=== PATIENT | male | born 1985 | race Caucasian/White ===

== ENCOUNTER 2024-07-29 11:59 | Outpatient (REF) | payer MEDICAID, SELFPAY ==
[2024-07-29 14:15] LABS: Alanine Aminotransferase 27 U/L (0-40); Albumin Level 4.3 g/dL (3.5-5.0); Alkaline Phosphatase 92 U/L (39-117); Aspartate Amino Transferase 15 U/L (5-37); Bilirubin Direct 0.1 mg/dL (0.0-0.5); Bilirubin Total 0.6 mg/dL (0.0-1.0); Total Protein 7.6 g/dL (6.5-8.0)
[2024-07-30 08:30] LABS: HBS Num1 3.97 mIU/mL (0-7.99); HBc Num1 0.09 S/CO (0.00-0.79); HBsAGNum1 0.38 S/CO (0.00-0.99); HIV AB/AG Nonreactive (Nonreactive); HIV Num 1 0.05 S/CO (0.00-0.99); Hepatitis B Core Antibody Nonreactive (Nonreactive); Hepatitis B Surface Antigen Negative (Negative); ~HepC Num1 0.08 S/CO (0.00-0.79); ~Hepatitis B Surface Antibody NONREACTIVE (Nonreactive); ~Hepatitis C Antibody Nonreactive (Nonreactive)
[2024-07-30 08:35] LABS: Hepatitis A Antibody IgG Nonreactive (Nonreactive); ~Hepatitis A Antibody IgG 0.26 S/CO (0.00-0.99)
[2024-07-30 08:36] LABS: Syphilis Screen Nonreactive (Nonreactive)
[2024-08-01 05:48] LABS: TS Negative Control Passed; TS Panel A 0; TS Panel B 2; TS Positive Control Passed; TSpotTB Negative (Negative)
== END 2024-07-29 12:00 | disposition home or self-care (01) ==
LOC: HO.HHCL 11:59
PROVIDERS: Visit Provider Family Medicine
DX: F10.20 Alcohol dependence, uncomplicated (principal)
CPT/HCPCS: 36415; 80076; 86481; 86704; 86706; 86708; 86780; 86803; 87340; 87389

== ENCOUNTER 2025-05-25 20:27 | Emergency (ER) | payer MEDICAID, SELFPAY ==
--- NOTE | ~2025-05-25 | XR_ITS ---
CLINICAL HISTORY: injury, pain 4 view left knee Comparison: CR - XR TIBIA FIBULA LT 2V - 05/25/25 21:07 EDT Findings: Lipohemarthrosis indicative of intra-articular fracture. Fracture of the lateral tibial spine concerning for ligamentous injury. Abnormal contour of the lateral tibial plateau concerning for fracture. No significant arthritic change or erosions. No radiopaque foreign body. IMPRESSION: 1. Lipohemarthrosis indicative of intra-articular fracture. 2. Fracture of the lateral tibial spine concerning for ligamentous injury. 3. Abnormal contour of the lateral tibial plateau concerning for fracture. This document has been electronically signed by: Charbel Herrera DO on 05/25/2025 21:44:02
--- NOTE | ~2025-05-25 | XR_ITS ---
CLINICAL HISTORY: injury, pain 2 view left tibia-fibula Comparison: CR - XR KNEE LT 4V - 05/25/25 21:08 EDT Findings Fracture of the medial tibial spine concerning for ligamentous injury. Age-indeterminate fracture of the inferior tip of the medial malleolus. Possible fracture of the lateral tibial plateau. No joint effusion. No significant arthritic change. No radiopaque foreign body. IMPRESSION: 1. Fracture of the medial tibial spine concerning for ligamentous injury. 2. Age-indeterminate fracture of the inferior tip of the medial malleolus. 3. Possible fracture of the lateral tibial plateau. This document has been electronically signed by: Charbel Herrera DO on 05/25/2025 21:44:22
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
[2025-05-25 20:36] VITALS: BP 139/81; PULSE 96; RESP 20; TEMP 36.8; O2SAT 97; BMI 28.5
[2025-05-25 20:46] VITALS: BP 129/59; PULSE 92; RESP 19; TEMP 36.6; O2SAT 98
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
[2025-05-25 22:29] VITALS: BP 153/86; PULSE 91; RESP 16; TEMP 36.6; O2SAT 97
[2025-05-25 22:37] VITALS: RESP 18
[2025-05-26 00:26] VITALS: BP 121/72; PULSE 84; RESP 19; TEMP 36.7; O2SAT 98
[2025-05-26] MEDS: oxyCODONE HCl Immed Release 5 MG TABLET 10 MG PO (00:27)
[2025-05-26 00:58] VITALS: BP 121/72; PULSE 84; RESP 19; TEMP 36.7; O2SAT 98
== END 2025-05-26 01:05 | disposition home or self-care (01) ==
PROVIDERS: Emergency Provider Emergency Medicine
DX: S82.202A Unspecified fracture of shaft of left tibia, initial encounter for closed fracture (principal); M79.605 Pain in left leg; V19.9XXA Pedal cyclist (driver) (passenger) injured in unspecified traffic accident, initial encounter; Y93.89 Activity, other specified; Y92.89 Other specified places as the place of occurrence of the external cause; Y99.8 Other external cause status
CPT/HCPCS: 73564; 73590; 73700; 96374; 96375; 96376; 99284; J1885; J2270

== ENCOUNTER → 2025-05-25 20:35 | Outpatient (BNV) | payer MEDICAID, SELFPAY | PROVIDERS: Visit Provider Family Medicine | DX: S82.112A Displaced fracture of left tibial spine, initial encounter for closed fracture (principal) | CPT/HCPCS: 73564; 73590 ==

== ENCOUNTER 2025-05-26 09:59 | Outpatient (AMB) | payer MEDICAID, SELFPAY ==
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
[2025-05-26 10:09] VITALS: BMI 28.5
--- OUTSIDE RECORDS SUMMARY | 2025-05-26 10:45 | XMS_ITS | Clinical Summary ---
Author Organization [employer] Address [address] [place] [address] [address] [place] [address] Care Team Providers Care Pattern Cutter Name Role Phone Unavailable Primary Care Provider Unavailabl e Allergies No known active allergies Social History Tobacco Use Types Packs/Day Years Used Date Smoking Tobacco: Never Assessed Alcohol Answer Date Recorded How often do you have a drink containing alcohol ? 4 07/19/2024 How many drinks containing a lcohol do you have on a typical day when you are drinking? 4 07/19/2024 How often do you have six or more drinks on one occasion? 4 07/19/2024 Sex and Gender Information Value Date Recorded Sex Assigned at Male 08/26/2024 11:40 AM EDT Legal Sex Male 6:04 PM EDT Gender Identity Male 08/26/2024 11:35 AM EDT Sexual Orientation Straight 08/26/2024 11 :40 AM EDT Last Filed Vital Signs Vital Sign Reading Time Taken Comments Blood Pressure 150/83 07/19/2024 3:22 PM EDT Pulse 86 07/19/2024 3:22 PM EDT Temperature 36.6 C (97.9 F) 07/19/2024 3:22 PM EDT Respiratory Rate 20 07/19/2024 3:22 PM EDT Oxygen Saturation - - Inhaled Oxygen Concentration - - Weight 93 kg (205 lb 0.6 oz) 07/19/2024 3:22 PM EDT Height - - Body Mass Index - - Plan of Treatment Health Maintenance Due Date Last Done Comments Depression Screening 1987 Lipid Panel 1987 SDOH Screening 1987 Disability Screening 1987 Tobacco Screening 1999 Family Planning (PISQ) 2002 HPV Vaccines (1 - Male 3-dos e series) 2002 DTaP/Tdap/Td Vaccines (1 - Tdap) 2006 Hepatitis B Vaccines (1 of 3 - 19+ 3-dose series) 2006 Pneumococcal Vaccine: Pediat rics (0 to 5 Years) and At-Risk Patients (6 to 49) Years (1 of 2 - PCV) 2006 COVID-19 Vaccine ( - 2023-2 5 season) 2024 Influenza Vaccine (#1) 2025 Alcohol/Substance Use Screening 07/19/2025 Zoster Vaccines (1 of 2) 2037 RSV Patients and Pa tients Aged 60 years or older (1 - 1-dose 75+ series) 2062 HIV Screening Completed 07/29/2024 Hepatitis C Screening Completed 07/29/2024 HIB Vaccines Aged Out No longer eligi ble based on patient's age to complete this topic Hepatitis A Vaccines Aged Out No long er eligible based on patient's age to complete this topic IPV Vaccines Aged Out No longer eligi ble based on patient's age to complete this topic Meningococcal B Vaccine Aged Out No l onger eligible based on patient's age to complete this topic Meningococcal Vaccine Aged Out No jules volodymyr eligible based on patient's age to complete this topic RSV under 20 months Aged Out No longe r eligible based on patient's age to complete this topic Rotavirus Vaccines Aged Out No longer eligible based on patient's age to complete this topic Procedures Procedure Name Priority Date/Time Associated Diagnosis Comments HEPATITIS C AB W/REFL TO HCV RNA, QN, PCR Routine 07/29/2024 12:06 PM EDT Severe alcohol use disorder (CMS/HCC) HIV 1/2 ANTIGEN/ANTIBODY, FOURTH GENERATION W/RFL Routine 07/29/2024 12:06 PM EDT Severe alcohol use disorder (CMS/HCC) from Last 3 Months or Most Recently Relevant to Health Maintenance Results * Hepatitis C Antibody with Reflex to HCV, RNA, Quantitative, Real-Time PCR (07/29/2024 12:06 PM EDT) Hepatitis C Antibody Nonreactive Nonreactive [facility] Comment:Antibodies to HCV no t detected; does not exclude early acuteHCV infection. Blood Venous blood specimen / Unknown 07/29/2024 12:06 PM EDT 07/29/2024 1:21 PM EDT Mauricio Núñez MD LAB BLOOD ORDERABLES Final Resul t Performing Organization Address [facility] Co de Phone Number [facility] [address] [place] [address] [phone] * HIV-1/2 Antigen and Antibodies, Fourth Generation, with Reflexes (07/29/2024 12:06 PM EDT) [facility] HIV AB/AG Nonreactive Nonreactive [facility] Comment:HIV-1 p24 Ag and/or HIV-1/HIV-2 Ab not detected.A test result that is nonreactive does not exclude thepossibility of exposure to or infection with HIV-1 and/orHIV-2. Nonreactive results in this assay for individualswith prior exposure to HIV-1 and/or HIV-2 may be due toantigen and antibody levels that are below the limit ofdetection of this assay.The Sellf HIV Ag/Ab Combo assay result andsupplemental assay results should be interpreted inconjunction with the patient's clinical presentation,history and other laboratory results. If the results areinconsistent with clinical evidence, additional testing issuggested to confirm the result. Blood Venous blood specimen / Unknown 07/29/2024 12:06 PM EDT 07/29/2024 1:21 PM EDT Mauricio Núñez MD LAB BLOOD ORDERABLES Final Resul t Performing Organization Address City/[facility]/ZIP Co de Phone Number [facility] [address] [place] [address] [phone] from Last 3 Months or Most Recently Relevant to Health Maintenance Insurance [facility] Member Subscriber Plan / Payer (Ef fective 2024-Present) Name:Hogn Gaona Relation to Subscriber:Self Name:Hong Gaona Payer ID:Not on file Group ID:Not on file Type:Medicaid Address: [address]
--- OUTSIDE RECORDS SUMMARY | 2025-05-26 10:45 | XMS_ITS | Clinical Summary ---
Author Organization [facility] Address [address] [place] [phone] Phone Care Team Providers Care Fiscal Assistant Name Role Phone Unknown, Unknown Primary Care Provider Maia banegas Allergies No known active allergies Medications No known medications Social History Tobacco Use Types Packs/Day Years Used Date Smoking Tobacco: Never Smokeless Tobacco: Never Alcohol Use Standard Drinks/Week Comments Yes 0 (1 standard drink = 0.6 oz pur e alcohol) weekends Education Answer Date Recorded Are you interested in more education? Not on amy e 03/03/2023 Are you concerned about learning? Not on file 03/03/2023 No 03/03/2023 No 03/03/2023 Digital Access Answer Date Recorded No 04/01/2023 No 04/01/2023 No 04/01/2023 Reliable internet access at home? Not on file 04/01/2023 Device with a working camera? Not on file Sex and Gender Information Value Date Recorded Sex Assigned at Not on file Legal Sex Male 1:38 PM EST Gender Identity Not on file Sexual Orientation Not on file Last Filed Vital Signs Vital Sign Reading Time Taken Comments Blood Pressure - - Pulse - - Temperature - - Respiratory Rate - - Oxygen Saturation - - Inhaled Oxygen Concentration - - Weight 94.3 kg (208 lb) 09/21/2020 11:15 AM EST Height 182.9 cm (6') 09/21/2020 11:15 AM EST Body Mass Index 28.21 09/21/2020 11:15 AM EST Plan of Treatment Health Maintenance Due Date Last Done Comments Adult Td,Tdap Booster 1987 LIPID PANEL 1987 DEPRESSION SCREENING 1999 HEPATITIS C SCREENING 2005 HIV ONE-TIME SCREENING (18-6 5 YEARS) 2005 COVID-19 VACCINE (2023-2 5 season) 2024 SMOKING STATUS SCREENING (On ce After 26 Yrs) Completed 10/20/2020 HEPATITIS A VACCINES Aged Out No long er eligible based on patient's age to complete this topic HIB VACCINES Aged Out No longer eligi ble based on patient's age to complete this topic MENINGOCOCCAL VACCINES (ACWY) Aged Out No longer eligible based on patient's age to complete this topic MENINGOCOCCAL VACCINES (B) Aged Out N o longer eligible based on patient's age to complete this topic PNEUMOCOCCAL VACCINES (0-49 years) Aged Out No longer eligible based on patient's age to complete this topic Medical Devices Not on file [place] [address] [place] [place] [address] [employer] Care Teams Fiscal Assistant Relationship Specialty Start Date End Date Unknown, Unknown, PCP - General 09/21/20 Additional Source Comments The information contained in this document represents components of the legal health record. It is not the complete legal health record.[facility]
--- OUTSIDE RECORDS SUMMARY | 2025-05-26 10:46 | XMS_ITS | Patient Health Record ---
Author Organization [facility] Address [address] [place], [place] [id number] Care Team Providers Care Manager Aerospace Name Role Phone [facility] Primary Care Provider Un available [facility] Unavailable [phone] Reason For Referral No Information Plan Of Treatment No Information Insurance Providers Payer Name Payer Address Payer Phone Subscriber Number Group Number Insured Name Patient Relationship to Insured Coverage Start Date Coverage End Date [place] Medicaid Standard [address] [place] [address] [id number] Hong Gaona Self - patient is the insured 3
== END 2025-05-26 10:52 | disposition home or self-care (01) ==
LOC: HO.HOS 10:00
PROVIDERS: Visit Provider Physician Assistant
DX: S82.142A Displaced bicondylar fracture of left tibia, initial encounter for closed fracture (principal)
CPT/HCPCS: 99204

== ENCOUNTER → 2025-05-26 09:59 | Outpatient (BNVA) | payer MEDICAID, SELFPAY | PROVIDERS: Visit Provider Physician Assistant | DX: S82.142A Displaced bicondylar fracture of left tibia, initial encounter for closed fracture (principal) | CPT/HCPCS: 99212 ==

== ENCOUNTER 2025-06-05 16:32 | Emergency (ER) | payer MEDICAID, SELFPAY ==
--- NOTE | ~2025-06-05 | US_ITS ---
CLINICAL HISTORY: swelling, pain VENOUS DUPLEX ULTRASOUND LEFT LOWER EXTREMITY Comparison: None provided Findings: The visualized deep veins are fully compressible with normal Doppler color flow and spectral tracings. No popliteal cyst. IMPRESSION: 1. Negative for left lower extremity deep vein thrombosis. This document has been electronically signed by: Erika Barnes DO on 06/05/2025 17:56:34
--- NOTE | ~2025-06-05 | CT_ITS ---
CLINICAL HISTORY: tibfib, known tib plateua fx, --- Additional Notes or Special Instructions: new swelling deformity etc CT LEFT TIBIA AND FIBULA WITHOUT CONTRAST Comparison: CT/SR - CT KNEE LT WO IV CON - 05/25/25 22:24 EDT Findings: Mildly depressed comminuted fracture in the posterolateral tibial plateau with no significant endosteal or periosteal sclerosis. Displaced fracture in the lateral intercondylar tubercle with non sclerotic margins. Old well corticated nonunited avulsion fracture in the medial malleolus. No new fracture identified. Uhugn-el-rhfkawdr retropatellar and suprapatellar joint effusion. No erosive or resorptive bony changes to suggest acute osteomyelitis. No deep or superficial gas locule. No foreign body. No significant arthritic changes. Prominent suprapatellar spurs. Small calcaneal spurs. Impression: 1. No significant interval healing changes in the posterolateral tibial plateau fracture and lateral intercondylar tubercle fracture. Unchanged alignment. 2. No new fracture identified. 3. Wrhko-ov-syvcfatg joint effusion. 4. No evidence for osteomyelitis. This document has been electronically signed by: Erika Barnes DO on 06/05/2025 19:43:17
[2025-06-05 16:53] VITALS: BP 130/87; PULSE 94; RESP 16; TEMP 36.5; O2SAT 98
[2025-06-05 16:56] VITALS: BMI 27.8
--- NOTE | 2025-06-05 17:10 | PC.NURSE ---
Pt reports 8/10 L knee/lower leg pain not relieved with PO pain meds; pt reports tightness in the posterior calf and ecchymosis to anterior lower leg that was not present before; cap refill to both LE's brisk; pt to U/S at this time
[2025-06-05 17:57] LABS: MANUAL DIFF FLAG NO
[2025-06-05 18:06] LABS: INTERNATIONAL NORM RATIO 1.1 (0.9-1.1); Prothrombin Time 12.1 SEC (10.9-12.4)
[2025-06-05 18:14] LABS: Alanine Aminotransferase 46 U/L (0-40); Albumin Level 4.7 g/dL (3.5-5.0); Alkaline Phosphatase 96 U/L (39-117); Anion Gap 13 (12-20); Aspartate Amino Transferase 24 U/L (5-37); Blood Urea Nitrogen 13 mg/dL (9-16); Calcium 9.7 mg/dL (8.4-10.2); Carbon Dioxide 27 mmol/L (22-29); Chloride 104 mmol/L (96-108); Creatinine Clr Calc Pharmacy 113.3; Estimated Glomerular Filt Rate > 60; Potassium 4.4 mmol/L (3.3-5.1); Sodium 140 mmol/L (135-145); Total Protein 8.1 g/dL (6.5-8.0)
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
[2025-06-05 18:24] LABS: Hematocrit 40.1 % (42.0-52.0); Hemoglobin 14.7 g/dl (14.0-18.0); Imm Gran Abs Auto 0.04 X10*3/uL (0.00-0.03); Imm Gran Pct Auto 0.5 % (0.0-0.4); Lymphocytes Absolute Auto 2.0 X10*3/uL (1.2-4.9); Mean Corpuscular HGB Conc 36.7 g/dl (31.0-36.0); Mean Corpuscular Hemoglobin 32.2 pg (27.0-33.0); Mean Corpuscular Volume 87.9 fL (80.0-98.0); NRBC Abs Auto 0.000 X10*3/uL (0.0-0.012); NRBC Pct Auto 0.0 /100WBC (0.0-0.2); Platelet Count 392 X10*3/uL (160-400); Red Blood Count 4.56 X10*6/uL (4.60-5.80); White Blood Count 8.3 X10*3/uL (4.8-10.8)
[2025-06-05 18:29] VITALS: BP 134/79; PULSE 81; RESP 16; TEMP 36.4; O2SAT 98
[2025-06-05 20:00] VITALS: BP 129/81; PULSE 75; RESP 16; TEMP 36.5; O2SAT 97
[2025-06-05 20:21] VITALS: BP 129/81; PULSE 75; RESP 16; TEMP 36.5; O2SAT 97
== END 2025-06-05 20:27 | disposition home or self-care (01) ==
PROVIDERS: Physician Assistant Medical; Emergency Provider Emergency Medicine
DX: R60.0 Localized edema (principal); M79.605 Pain in left leg; Z79.899 Other long term (current) drug therapy
CPT/HCPCS: 36415; 73700; 80053; 85025; 85610; 93971; 96374; 96375; 99284; J1171; J1885; J2270

== ENCOUNTER → 2025-06-05 16:55 | Outpatient (BNV) | payer MEDICAID, SELFPAY | PROVIDERS: Visit Provider Radiology Diagnostic Radiology | DX: M25.462 Effusion, left knee (principal); M25.562 Pain in left knee | CPT/HCPCS: 73700; 93971 ==

== ENCOUNTER 2025-07-15 08:43 | Outpatient (REF) | payer MEDICAID, SELFPAY ==
--- OUTSIDE RECORDS SUMMARY | 2025-07-16 10:10 | XMS_ITS | Clinical Summary ---
Author Organization [facility] Address [address] [place] [phone] Phone Care Team Providers Care Material Damage Adjuster Name Role Phone Unknown, Unknown Primary Care [...] HIV ONE-TIME SCREENING (18-6 5 YEARS) 2005 INFLUENZA VACCINE (#1) 2025 COVID-19 VACCINE (2023-2 5 season) 2025 SMOKING STATUS SCREENING (On ce After 26 [...] topic Medical Devices Not on file Insurance [employer]3 [employer] [facility] C3 [employer] Member Subscriber Plan / Payer (Ef fective 2020-Present) Name:Hong Gaona Relation to Subscriber:Self Name:JimenezHong Payer ID:[id number] Group ID:Not on file Type:Medicaid Address: [place] [id number] [employer] [address] [place] [address] [address] [employer] Care Teams Material Damage Adjuster Relationship Specialty Start Date End Date Unknown, Unknown, PCP - General 09/21/20 Additional Source Comments The information contained in this document represents components of the legal health record. It is not the complete legal health record.[facility]
--- OUTSIDE RECORDS SUMMARY | 2025-07-16 10:10 | XMS_ITS | Encounter Summary ---
Author Organization [facility] Address [address] [place] [phone] Phone Care Team Providers Care Nutrition And Dietetics Instructor Name Role Phone Unknown, Unknown Primary Care Provider Maia banegas Encounter Details Date Type Department Care Team (Late st Contact Info) Description 09/23/2020 Ancillary Orders [facility],Outside Imaging [address] [place] [address] System, Provider Not In, [facility] [address] [address] Social History Tobacco Use Types Packs/Day Years Used Date Smoking Tobacco: Never Smokeless Tobacco: Never Alcohol Use Standard Drinks/Week Comments Yes 0 (1 standard drink = 0.6 oz pur e alcohol) weekends Sex and Gender Information Value Date Recorded Sex Assigned at Not on file Legal Sex Male 1:38 PM EST Gender Identity Not on file Sexual Orientation Not on file documented as of this encounter Plan of Treatment Not on file documented as of this encounter Results * XR Upper Extremity Outside (No Interpretation) (09/17/2020 12:00 AM EST) Narrative SYSTEMGENERATED, DOCUMENTATION - 09/23/2020 12:38 PM EST This study is for PACS storage only and not for interpretation. us Provider Not In System PhD [facility] OUTSIDE IMAGING W /OUT INTERPRETATION Final Result documented in this encounter Visit Diagnoses Not on filedocumented in this encounter Care Teams Nutrition And Dietetics Instructor Relationship Specialty Start Date End Date Unknown, Unknown, PCP - General 09/21/20 documented as of this encounter Additional Source Comments The information contained in this document represents components of the legal health record. It is not the complete legal health record.[facility]
--- OUTSIDE RECORDS SUMMARY | 2025-07-16 10:10 | XMS_ITS | Clinical Summary ---
Author Organization [employer] Address [address] [place] [address] 7[address] [place] [address] Care Team Providers Care It Compliance Analyst Name Role Phone Unavailable Primary Care Provider Unavailabl e Allergies No known active allergies Encounters Date Type Department Care Team Description 06/24/2025 Telephone [facility] [address] [place] [address] Derek Bailey MD 06/05/2025 Orders Only [facility] External Provider, [facility] from Last 3 Months Social History Tobacco Use Types Packs/Day Years [...] of 2 - PCV) 2006 COVID-19 Vaccine (1 - 2023-2 5 season) 2025 Influenza Vaccine (#1) 2025 Alcohol/Substance Use Screening 07/19/2025 4 Zoster Vaccines (1 of 2) 2037 RSV [...] Procedure Name Priority Date/Time Associated Diagnosis Comments CT LOWER EXTREMITY WO CONTRAST LEFT Routine 06/05/2025 7:43 PM EDT LOWER EXTREMITY VENOUS DUPLEX LEFT Routine 06/05/2025 5:56 PM EDT CBC WITH AUTO DIFFERENTIAL Routine 06/05/2025 5:54 PM EDT COMPREHENSIVE METABOLIC PANEL Routine 06/05/2025 5:54 PM EDT PROTHROMBIN TIME-INR Routine 06/05/2025 5:54 PM EDT HEPATITIS C AB W/REFL TO HCV RNA, QN, PCR Routine 07/29/2024 12:06 PM EDT Severe alcohol use disorder (CMS/HCC) HIV 1/2 ANTIGEN/ANTIBODY, FOURTH GENERATION W/RFL Routine 07/29/2024 12:06 PM EDT Severe alcohol use disorder (CMS/HCC) from Last 3 Months or Most Recently Relevant to Health Maintenance Results * CT Lower Extremity w/o Contrast Left (06/05/2025 7:43 PM EDT) Anatomical Region Laterality Modality Computed Tomogra phy 06/05/2025 7:43 PM EDT Narrative 06/05/2025 7:45 PM EDT [place] [address] CT Scan Report Signed Patient: Hong Gaona MR#: [id number] : 1985 Acct:[id number] Age/Sex: 40 / M ADM Date: 06/05/25 Loc: HO.ED Attending Dr: Ordering Physician: Miryam Moya Date of Service: 06/05/25 Procedure(s): CT lower leg LT wo IV con Accession Number(s): [id number] cc: Miryam Moya; [facility] Report Number: [id number]: Total DLP = 393.00 mGy-cm CLINICAL HISTORY: tibfib, known tib plateua fx, --- Additional Notes or Special Instructions: new swelling deformity etc CT LEFT TIBIA AND FIBULA WITHOUT CONTRAST Comparison: CT/SR - CT KNEE LT WO IV CON - 05/25/25 22:24 EDT Findings: Mildly depressed comminuted fracture in the posterolateral tibial plateau with no significant endosteal or periosteal sclerosis. Displaced fracture in the lateral intercondylar tubercle with non sclerotic margins. Old well corticated nonunited avulsion fracture in the medial malleolus. No new fracture identified. Rxmkr-xm-hfifufdf retropatellar and suprapatellar joint effusion. No erosive or resorptive bony changes to suggest acute osteomyelitis. No deep or superficial gas locule. No foreign body. No significant arthritic changes. Prominent suprapatellar spurs. Small calcaneal spurs. Impression: 1. No significant interval healing changes in the posterolateral tibial plateau fracture and lateral intercondylar tubercle fracture. Unchanged alignment. 2. No new fracture identified. 3. Xgiof-tp-dxjvvkkr joint effusion. 4. No evidence for osteomyelitis. This document has been electronically signed by: Erika Barnes DO on 06/05/2025 19:43:17 Dictated By: Erika Barnes MD Signed By: <Electronically signed by Erika Barnes MD in OV> 06/05/251943 DD/ 42 TD/TT: 06/05/251942 Lead Shop Operator: Procedure Note Donotuseinterpreter, Image - 06/05/[address] [place] [address] [address] Scan Report Signed Patient: Hong Gaona LMR#: [id number] : 1985Acct:[id number] Age/Sex: 40 / MADM Date: 06/05/25 Loc: HO.ED Attending Dr: Ordering Physician: Miryam Moya Date of Service: 06/05/25 Procedure(s): CT lower leg LT wo IV con Accession Number(s): [id number] cc: Miryam Moya; [facility] Report Number: [id number]: Total DLP = 393.00 mGy-cm CLINICAL HISTORY: tibfib, known tib plateua fx, --- Additional Notes orSpecial Instructions: new swelling deformity etc CT LEFT TIBIA AND FIBULA WITHOUT CONTRAST Comparison: CT/SR - CT KNEE LT WO IV CON - 05/25/25 22:24 EDT Findings: Mildly depressed comminuted fracture in the posterolateral tibial plateau with no significant endosteal or periosteal sclerosis. Displaced fracture in the lateral intercondylar tubercle with non sclerotic margins. Old well corticated nonunited avulsion fracture in the medial malleolus. No new fracture identified. Hbptk-ak-idrpgnep retropatellar and suprapatellar joint effusion. No erosive or resorptive bony changes to suggest acute osteomyelitis. No deep or superficial gas locule. No foreign body. No significant arthritic changes. Prominent suprapatellar spurs. Small calcaneal spurs. Impression: 1. No significant interval healing changes in the posterolateral tibial plateau fracture and lateral intercondylar tubercle fracture. Unchanged alignment. 2. No new fracture identified. 3. Redyv-ex-mnlqlruf joint effusion. 4. No evidence for osteomyelitis. This document has been electronically signed by: Erika Barnes DO on 06/05/2025 19:43:17 Dictated By: Erika Barnes MD Signed By: <Electronically signed by Erika Barnes MD in OV> 06/05/251943 DD/ 42 TD/TT: 06/05/251942 Lead Shop Operator: [facility] External Provider IMG CT PROCEDURES Final Result * Lower Extremity Venous Duplex (06/05/2025 5:56 PM EDT) 06/05/2025 5:56 PM EDT Narrative [facility] - 06/05/2025 5:58 PM EDT [address] [address] Ultrasound Report Signed Patient: Hong Gaona MR#: [id number] : 1985 Acct:[id number] Age/Sex: 40 / M ADM Date: 06/05/25 Loc: HO.ED Attending Dr: Ordering Physician: Yisel Ruiz Date of Service: 06/05/25 Procedure(s): US venous duplex LE Accession Number(s): [id number] cc: Yisel Ruiz; [facility] CLINICAL HISTORY: swelling, pain VENOUS DUPLEX ULTRASOUND LEFT LOWER EXTREMITY Comparison: None provided Findings: The visualized deep veins are fully compressible with normal Doppler color flow and spectral tracings. No popliteal cyst. IMPRESSION: 1. Negative for left lower extremity deep vein thrombosis. This document has been electronically signed by: Erika Barnes DO on 06/05/2025 17:56:34 Dictated By: Erika Barnes MD Signed By: <Electronically signed by Erika Barnes MD in OV> 06/05/251756 DD/ 55 TD/TT: 06/05/251755 Lead Shop Operator: Procedure Note Donotuseinterpreter, Image - 06/05/[address] [address] Ultrasound Report Signed Patient: Hong Gaona LMR#: [id number] : 1985Acct:[id number] Age/Sex: 40 / MADM Date: 06/05/25 Loc: .ED Attending Dr: Ordering Physician: Yisel Ruiz Date of Service: 06/05/25 Procedure(s): US venous duplex LE LT Accession Number(s): [id number] cc: Yisel Ruiz; [facility] CLINICAL HISTORY: swelling, pain VENOUS DUPLEX ULTRASOUND LEFT LOWER EXTREMITY Comparison: None provided Findings: The visualized deep veins are fully compressible with normal Doppler color flow and spectral tracings. No popliteal cyst. IMPRESSION: 1. Negative for left lower extremity deep vein thrombosis. This document has been electronically signed by: Erika Barnes DO on 06/05/2025 17:56:34 Dictated By: Erika Barnes MD Signed By: <Electronically signed by Erika Barnes MD in OV> 06/05/251756 DD/ 55 TD/TT: 06/05/251755 Lead Shop Operator: [facility] External Provider CV VASC ULAR PROCEDURES Final Result [facility] [address] [place] [address] [phone] * (ABNORMAL) CBC auto differential (06/05/2025 5:54 PM EDT) White Blood Count 8.3 4.8 - 10.8 X10*3/uL [facility] Red Blood Count 4.56(L) 4.60 - 5.80 X10*6/uL [facility] Hemoglobin 14.7 14.0 - 18.0 g/dl [facility] Hematocrit 40.1(L) 42.0 - 52.0 % [facility] Mean Corpuscular Volume 87.9 80.0 - 98.0 fL [facility] Mean Corpuscular Hemoglobin 32.2 27.0 - 33.0 pg [facility] Mean Corpuscular HGB Conc 36.7(H) 31.0 - 36.0 g/dl [facility] Red Cell Distribution Width 12.3 11.0 - 16.0 % [facility] Platelet Count 392 160 - 400 X10*3/uL [facility] Mean Platelet Volume 8.3(L) 9.4 - 12.4 fL [facility] Neutrophils Percent Auto 66.3 45 - 73 % [facility] Imm Gran Pct Auto 0.5(H) 0.0 - 0.4 % [facility] Lymphocytes Percent Auto 24.5 20 - 40 % [facility] Monocytes Percent Auto 6.9 2 - 11 % [facility] Eosinophils Percent Auto 1.2 0 - 4 % [facility] Basophils Percent Auto 0.6 0 - 2 % [facility] NRBC Pct Auto 0.0 0.0 - 0.2 /100WBC [facility] Neutrophils Absolute Auto 5.5 2.0 - 8.3 x10*3/uL [facility] Imm Gran Abs Auto 0.04(H) 0.00 - 0.03 X10*3/uL [facility] Lymphocytes Absolute Auto 2.0 1.2 - 4.9 X10*3/uL [facility] Monocytes Absolute Auto 0.6 0.1 - 1.2 X10*3/uL [facility] Eosinophils Absolute Auto 0.1 0.0 - 0.4 X10*3/uL [facility] Basophils Absolute Auto 0.1 0.0 - 0.2 X10*3/uL [facility] NRBC Abs Auto 0.000 0.0 - 0.012 X10*3/uL [facility] 06/05/2025 5:54 PM EDT 06/05/2025 5:56 PM EDT Generic External Data Provider LAB BLOOD ORDERAB LES Final Result Performing Organization Address [facility] Co de Phone Number [facility] [address] [place] [address] [phone] * Prothrombin Time-INR (06/05/2025 5:54 PM EDT) Prothrombin Time 12.1 10.9 - 12.4 SEC [facility] INTERNATIONAL NORM RATIO 1.1 0.9 - 1.1 [facility] Comment:INTERNATIONAL NORMAL IZED RATIO (INR) REFERENCE RANGES Reference RangeFor patients not on anticoagulant therapy: 0.9 - 1.1INR ranges for oral anticoagulanttherapy:For prevention and treatment of venous thrombosis and pulmonary embolism: 2.0 - 3.0For acute myocardial infarction with aspirin therapy: 2.0 - 3.0For acute myocardial infarction without aspirin therapy: 3.0 - 4.0For patients with mechanical prosthetic heart valves: 2.5 - 3.5 06/05/2025 5:54 PM EDT 06/05/2025 5:56 PM EDT Generic External Data Provider LAB BLOOD ORDERAB LES Final Result Performing Organization Address [facility] Co de Phone Number [facility] [address] [place] [address] [phone] * (ABNORMAL) Comprehensive Metabolic Panel (06/05/2025 5:54 PM EDT) Sodium 140 135 - 145 mmol/L [facility] Potassium 4.4 3.3 - 5.1 mmol/L [facility] Chloride 104 96 - 108 mmol/L [facility] Carbon Dioxide 27 22 - 29 mmol/L [facility] Anion Gap 13 12 - 20 [facility] Urea Nitrogen (BUN) 13 9 - 16 mg/dL [facility] Creatinine, Serum 0.97 0.5 - 1.4 mg/dL [facility] Creatinine Clr Calc Pharmacy 113.3 [facility] Comment:eGFR (calculated fro m the MDRD study equation) and eCrCl(calculated from the Cockcroft-Gault equation) are based ondifferent parameters and may not yield comparable results.If eCrCl result is absurd, please check patient'sheight/weight. Estimated Glomerular Filt Rate >60 [facility] Comment:Chronic Kidney Disea se: Estimated GFR < 60 mL/min/1.15j3Hbqrwh Kidney Disease: Estimated GFR < 15 mL/min/1.73m2 Glucose 112 60 - 115 mg/dL [facility] Calcium 9.7 8.4 - 10.2 mg/dL [facility] Bilirubin, Total 0.4 0.0 - 1.0 mg/dL [facility] Aspartate Amino Transferase 24 5 - 37 U/L [facility] Alanine Aminotransferase 46(H) 0 - 40 U/L [facility] Total Protein 8.1(H) 6.5 - 8.0 g/dL [facility] Albumin Level 4.7 3.5 - 5.0 g/dL [facility] Alkaline Phosphatase 96 39 - 117 U/L [facility] 06/05/2025 5:54 PM EDT 06/05/2025 5:56 PM EDT us Generic External Data Provider LAB BLOOD ORDERAB LES Final Result [facility] [address] [place] [phone] * Hepatitis C Antibody with Reflex to HCV, RNA, Quantitative, Real-Time PCR (07/29/2024 12:06 PM EDT) Hepatitis C Antibody Nonreactive Nonreactive [facility] Comment:Antibodies to HCV no t detected; does not exclude early acuteHCV infection. Blood Venous blood specimen / Unknown 07/29/2024 12:06 PM EDT 07/29/2024 1:21 PM EDT Mauricio Núñez MD LAB BLOOD ORDERABLES Final Resul t Performing Organization Address [facility]/ZIP Co de Phone Number [facility] [address] [place] [phone] * HIV-1/2 Antigen and Antibodies, Fourth Generation, with Reflexes (07/29/2024 12:06 PM EDT) HIV AB/AG Nonreactive Nonreactive [facility] Comment:HIV-1 p24 Ag and/or HIV-1/HIV-2 Ab not detected.A test result that is nonreactive does not exclude thepossibility of exposure to or infection with HIV-1 and/orHIV-2. Nonreactive results in this assay for individualswith prior exposure to HIV-1 and/or HIV-2 may be due toantigen and antibody levels that are below the limit ofdetection of this assay.The ReliSen HIV Ag/Ab Combo assay result andsupplemental assay results should be interpreted inconjunction with the patient's clinical presentation,history and other laboratory results. If the results areinconsistent with clinical evidence, additional testing issuggested to confirm the result. Blood Venous blood specimen / Unknown 07/29/2024 12:06 PM EDT 07/29/2024 1:21 PM EDT Mauricio Núñez MD LAB BLOOD ORDERABLES Final Resul t Performing Organization Address [facility]/ZIP Co de Phone Number [facility] [address] [place] [phone] from Last 3 Months or Most Recently Relevant to Health Maintenance Insurance Snapsheet [facility] C3 Member Subscriber Plan / Payer (Ef fective for All Dates) Name:Hong Gaona Relation to Subscriber:Self Name:Hong Gaona Payer ID:Not on file Group ID:Not on file Type:Medicaid Address: [place] [id number]
--- OUTSIDE RECORDS SUMMARY | 2025-07-16 10:10 | XMS_ITS | Patient Health Record ---
Author Organization [facility] Address [address] [place] [address] Care Team Providers Care Dimension Quarry Supervisor Name Role Phone [facility] Primary Care Provider [facility] Unavailable [phone] Reason For Referral No Information Plan Of Treatment No Information Insurance Providers Payer Name Payer Address Payer Phone Subscriber Number Group Number Insured Name Patient Relationship to Insured Coverage Start Date Coverage End Date [place] Medicaid Standard [address] [place] [address] [id number] Hong Gaona Self - patient is the insured 3
== END 2025-07-15 08:44 | disposition home or self-care (01) ==
LOC: HO.HOSX 08:43
PROVIDERS: Visit Provider Physician Assistant
DX: Z13.89 Encounter for screening for other disorder (principal)

== ENCOUNTER 2025-07-17 18:16 | Outpatient (REF) | payer MEDICAID, SELFPAY ==
--- NOTE | ~2025-07-17 | MR_ITS ---
CLINICAL HISTORY: S82.142A - Displaced bicondylar fracture of left tibia, initial encounte... --- Additional Notes or Special Instructions: Fall while on crutches eval tibial plateau fx for possible displacementpain at quad tendon insertion MR left knee without gadolinium Comparison: CT/SR - CT LOWER LEG LT WO IV CON - 06/05/25 18:[address]/SR - CT KNEE LT WO IV CON - 05/25/25 22:24 EDT Findings: Mildly displaced lateral tibial plateau fracture with associated marrow edema. There is approximately3 mm of fracture depression. There is a small displaced fracture of the tibial spine with fracture fragment in the intercondylar notch. This fracture fragment measures approximately 6 mm. The ACL demonstrates intrasubstance increased signal suggesting partial tearing. PCL appears intact. Intact collateral ligaments. Patellar retinacula and iliotibial band are intact. No tears of the quadriceps, patellar, popliteus, or flexor tendons. There are no meniscal tears. Small popliteal cyst. IMPRESSION: 1. Lateral tibial plateau fracture with ongoing marrow edema. 2. Small fracture of the tibial spine. 3. Partial ACL tear. This document has been electronically signed by: Sylvia Campa MD on 07/17/2025 20:17:17
--- OUTSIDE RECORDS SUMMARY | 2025-07-17 19:03 | XMS_ITS | Clinical Summary ---
Author Organization [facility] Address [address] [place] [phone] Phone Care Team Providers Care Financial Assistance Advisor Name Role Phone Unknown, Unknown Primary Care [...] Devices Not on file Insurance C3 ACO [facility] C3 ACO C3 ACO C3 ACO Member Subscriber Plan / Payer (Ef fective 2020-Present) Name:Hong Gaona Relation to Subscriber:Self Name:JimenezHong Payer ID:[id number] Group ID:Not on file Type:Medicaid Address: [place] [id number] C[address]CO [address] [place] [place] [address] C3 ACO Care Teams Financial Assistance Advisor Relationship Specialty Start Date End Date Unknown, Unknown, PCP - General 09/21/20 Additional Source Comments The information contained in this document represents components of the legal health record. It is not the complete legal health record.[facility]
--- OUTSIDE RECORDS SUMMARY | 2025-07-17 19:03 | XMS_ITS | Patient Health Record ---
Author Organization [facility] Address [address] [place] [address] Care Team Providers Care Administrative Supervisor Name Role Phone [facility] Primary Care Provider [phone] [facility] Unavailable [phone] Reason For Referral No Information Plan Of Treatment No Information Insurance Providers Payer Name Payer Address Payer Phone Subscriber Number Group Number Insured Name Patient Relationship to Insured Coverage Start Date Coverage End Date [place] Medicaid Standard [address] [place] [address] [phone] [id number] Hong Gaona Self - patient is the insured 3
--- OUTSIDE RECORDS SUMMARY | 2025-07-17 19:03 | XMS_ITS | Encounter Summary ---
Author Organization [facility] Address [address] [place] [phone] Phone Care Team Providers Care Mental Health Associate Name Role Phone Unknown, Unknown Primary Care Provider Maia banegas Encounter Details Date Type Department Care Team (Late st Contact Info) Description 09/23/2020 Ancillary Orders [facility],Outside Imaging [address] [place] [address] System, Provider Not In, [facility] [address] [address] Social History Tobacco Use Types Packs/Day Years [...] on filedocumented in this encounter Care Teams Mental Health Associate Relationship Specialty Start Date End Date Unknown, Unknown, PCP - General 09/21/20 documented as of this encounter Additional Source Comments The information contained in this document represents components of the legal health record. It is not the complete legal health record.[facility]
--- OUTSIDE RECORDS SUMMARY | 2025-07-17 19:03 | XMS_ITS | Clinical Summary ---
Author Organization [employer] Address [address] [place] [address] [address] [place] [address] Care Team Providers Care Manufacturing Finance Manager Name Role Phone Unavailable Primary Care Provider Unavailabl e Allergies No known active allergies Encounters Date Type Department Care Team Description 06/24/2025 Telephone [facility] [address] [place] [address] Derek Bailey MD 06/05/2025 Orders Only [facility] External Provider, [facility] from Last 3 Months Social History Tobacco [...] PM EDT Narrative 06/05/2025 7:45 PM EDT [place] [address] [address] Scan Report Signed Patient: Hong Gaona MR#: [id number] : 1985 Acct:[id number] Age/Sex: 40 / M ADM Date: 06/05/25 Loc: HO.ED Attending Dr: Ordering Physician: Miryam Moya Date of Service: 06/05/25 Procedure(s): CT lower leg LT wo IV con Accession Number(s): [id number] cc: Miryam Moya; [facility] [employer] Report Number: [id number]: Total DLP = 393.00 mGy-cm CLINICAL HISTORY: [...] the medial malleolus. No new fracture identified. Pmvzv-hu-vzvbshue retropatellar and suprapatellar joint effusion. No erosive or resorptive bony changes to suggest acute osteomyelitis. No deep or superficial gas locule. No foreign body. No significant arthritic changes. Prominent suprapatellar spurs. Small calcaneal spurs. Impression: 1. No significant interval healing changes in the posterolateral tibial plateau fracture and lateral intercondylar tubercle fracture. Unchanged alignment. 2. No new fracture identified. 3. Oxckc-di-kfwegimb joint effusion. 4. No evidence for osteomyelitis. This document has been electronically signed by: Erika Barnes DO on 06/05/2025 19:43:17 Dictated By: Erika Barnes MD Signed By: <Electronically signed by Erika Barnes MD in OV> 06/05/251943 DD/ 42 TD/TT: 06/05/251942 Certified Coatings Inspector: Procedure Note Donotuseinterpreter, Image - 06/05/[address] [place] [address] [address] Scan Report Signed Patient: Hong Gaona LMR#: [id number] : 1985Acct:[id number] Age/Sex: 40 / MADM Date: 06/05/25 Loc: HO.ED Attending Dr: Ordering Physician: Miryam Moya Date of Service: 06/05/25 Procedure(s): CT lower leg LT wo IV con Accession Number(s): [id number] cc: Miryam Moya; [facility] Report Number: [id number]: Total DLP = 393.00 mGy-cm CLINICAL HISTORY: [...] the medial malleolus. No new fracture identified. Qqkrz-to-xillsigi retropatellar and suprapatellar joint effusion. No erosive or resorptive bony changes to suggest acute osteomyelitis. No deep or superficial gas locule. No foreign body. No significant arthritic changes. Prominent suprapatellar spurs. Small calcaneal spurs. Impression: 1. No significant interval healing changes in the posterolateral tibial plateau fracture and lateral intercondylar tubercle fracture. Unchanged alignment. 2. No new fracture identified. 3. Pgmql-zo-ghxhhlrz joint effusion. 4. No evidence for osteomyelitis. This document has been electronically signed by: Erika Barnes DO on 06/05/2025 19:43:17 Dictated By: Erika Barnes MD Signed By: <Electronically signed by Erika Barnes MD in OV> 06/05/251943 DD/ 42 TD/TT: 06/05/251942 Certified Coatings Inspector: [facility] External Provider IMG CT PROCEDURES Final Result * Lower Extremity Venous Duplex (06/05/2025 5:56 PM EDT) 06/05/2025 5:56 PM EDT Narrative [facility] - 06/05/2025 5:58 PM EDT [address] [address] Ultrasound Report Signed Patient: Hong Gaona MR#: [id number] : 1985 Acct:[id number] Age/Sex: 40 / M ADM Date: 06/05/25 Loc: HO.ED Attending Dr: Ordering Physician: Yisel Ruiz Date of Service: 06/05/25 Procedure(s): US venous duplex LE Accession Number(s): [id number] cc: Yisel Ruiz; [facility] CLINICAL HISTORY: swelling, pain VENOUS DUPLEX ULTRASOUND [...] in OV> 06/05/251756 DD/ 55 TD/TT: 06/05/251755 Certified Coatings Inspector: Procedure Note Donotuseinterpreter, Image - 06/05/[address] [address] Ultrasound Report Signed Patient: Hong Gaona LMR#: [id number] : 1985Acct:[id number] Age/Sex: 40 / MADM Date: 06/05/25 Loc: .ED Attending Dr: Ordering Physician: Yisel Ruiz Date of Service: 06/05/25 Procedure(s): US venous duplex LE LT Accession Number(s): [id number] cc: Yisel Ruiz; [facility] CLINICAL HISTORY: swelling, pain VENOUS DUPLEX ULTRASOUND [...] in OV> 06/05/251756 DD/ 55 TD/TT: 06/05/251755 Certified Coatings Inspector: [facility] External Provider CV VASC ULAR PROCEDURES Final Result [facility] [address] [place] [address] [phone] * (ABNORMAL) CBC auto differential (06/05/2025 5:54 PM EDT) White Blood Count 8.3 4.8 - 10.8 X10*3/uL [facility] Red Blood Count 4.56(L) 4.60 - 5.80 X10*6/uL [facility] Hemoglobin 14.7 14.0 - 18.0 g/dl [facility] Hematocrit 40.1(L) 42.0 - 52.0 % [facility] Mean Corpuscular Volume 87.9 80.0 - 98.0 fL [facility] Mean Corpuscular Hemoglobin 32.2 27.0 - 33.0 pg [facility] Mean Corpuscular HGB Conc 36.7(H) 31.0 - 36.0 g/dl [facility] Red Cell Distribution Width 12.3 11.0 - 16.0 % [facility] Platelet Count 392 160 - 400 X10*3/uL [facility] Mean Platelet Volume 8.3(L) 9.4 - 12.4 fL [facility] Neutrophils Percent Auto 66.3 45 - 73 % [facility] Imm Gran Pct Auto 0.5(H) 0.0 - 0.4 % [facility] Lymphocytes Percent Auto 24.5 20 - 40 % [facility] Monocytes Percent Auto 6.9 2 - 11 % [facility] Eosinophils Percent Auto 1.2 0 - 4 % [facility] Basophils Percent Auto 0.6 0 - 2 % [facility] NRBC Pct Auto 0.0 0.0 - 0.2 /100WBC [facility] Neutrophils Absolute Auto 5.5 2.0 - 8.3 x10*3/uL [facility] Imm Gran Abs Auto 0.04(H) 0.00 - 0.03 X10*3/uL [facility] Lymphocytes Absolute Auto 2.0 1.2 - 4.9 X10*3/uL [facility] Monocytes Absolute Auto 0.6 0.1 - 1.2 X10*3/uL [facility] Eosinophils Absolute Auto 0.1 0.0 - 0.4 X10*3/uL [facility] Basophils Absolute Auto 0.1 0.0 - 0.2 X10*3/uL [facility] NRBC Abs Auto 0.000 0.0 - 0.012 X10*3/uL [facility] 06/05/2025 5:54 PM EDT 06/05/2025 5:56 PM EDT Generic External Data Provider LAB BLOOD ORDERAB LES Final Result Performing Organization Address [facility] Co de Phone Number [facility] [address] [place] [address] [phone] * Prothrombin Time-INR (06/05/2025 5:54 PM EDT) Prothrombin Time 12.1 10.9 - 12.4 SEC [facility] INTERNATIONAL NORM RATIO 1.1 0.9 - 1.1 [facility] Comment:INTERNATIONAL NORMAL IZED RATIO (INR) REFERENCE [...] ORDERAB LES Final Result Performing Organization Address [facility] Co de Phone Number [facility] [address] [place] [address] [phone] * (ABNORMAL) Comprehensive Metabolic Panel (06/05/2025 5:54 PM EDT) Sodium 140 135 - 145 mmol/L [facility] Potassium 4.4 3.3 - 5.1 mmol/L [facility] Chloride 104 96 - 108 mmol/L [facility] Carbon Dioxide 27 22 - 29 mmol/L [facility] Anion Gap 13 12 - 20 [facility] Urea Nitrogen (BUN) 13 9 - 16 mg/dL [facility] Creatinine, Serum 0.97 0.5 - 1.4 mg/dL [facility] Creatinine Clr Calc Pharmacy 113.3 [facility] Comment:eGFR (calculated fro m the MDRD study equation) and eCrCl(calculated from the Cockcroft-Gault equation) are based ondifferent parameters and may not yield comparable results.If eCrCl result is absurd, please check patient'sheight/weight. Estimated Glomerular Filt Rate >60 [facility] Comment:Chronic Kidney Disea se: Estimated GFR < 60 mL/min/1.90r4Zhindp Kidney Disease: Estimated GFR < 15 mL/min/1.73m2 Glucose 112 60 - 115 mg/dL [facility] Calcium 9.7 8.4 - 10.2 mg/dL [facility] Bilirubin, Total 0.4 0.0 - 1.0 mg/dL [facility] Aspartate Amino Transferase 24 5 - 37 U/L [facility] Alanine Aminotransferase 46(H) 0 - 40 U/L [facility] Total Protein 8.1(H) 6.5 - 8.0 g/dL [facility] Albumin Level 4.7 3.5 - 5.0 g/dL [facility] Alkaline Phosphatase 96 39 - 117 U/L [facility] 06/05/2025 5:54 PM EDT 06/05/2025 5:56 PM EDT us Generic External Data Provider LAB BLOOD ORDERAB LES Final Result [facility] [address] [place] [phone] * Hepatitis C Antibody with Reflex to HCV, RNA, Quantitative, Real-Time PCR (07/29/2024 12:06 PM EDT) Hepatitis C Antibody Nonreactive Nonreactive [facility] Comment:Antibodies to HCV no t detected; does not exclude early acuteHCV infection. Blood Venous blood specimen / Unknown 07/29/2024 12:06 PM EDT 07/29/2024 1:21 PM EDT Mauricio Núñez MD LAB BLOOD ORDERABLES Final Resul t Performing Organization Address [facility]/ZIP Co de Phone Number [facility] [address] [place] [phone] * HIV-1/2 Antigen and Antibodies, Fourth Generation, with Reflexes (07/29/2024 12:06 PM EDT) HIV AB/AG Nonreactive Nonreactive [facility] Comment:HIV-1 p24 Ag and/or HIV-1/HIV-2 Ab not detected.A test result that is nonreactive does not exclude thepossibility of exposure to or infection with HIV-1 and/orHIV-2. Nonreactive results in this assay for individualswith prior exposure to HIV-1 and/or HIV-2 may be due toantigen and antibody levels that are below the limit ofdetection of this assay.The [employer] HIV Ag/Ab Combo assay result andsupplemental assay results should be interpreted inconjunction with the patient's clinical presentation,history and other laboratory results. If the results areinconsistent with clinical evidence, additional testing issuggested to confirm the result. Blood Venous blood specimen / Unknown 07/29/2024 12:06 PM EDT 07/29/2024 1:21 PM EDT Mauricio Núñez MD LAB BLOOD ORDERABLES Final Resul t Performing Organization Address [facility]/ZIP Co de Phone Number [facility] [address] [place] [phone] from Last 3 Months or Most Recently Relevant to Health Maintenance Insurance [employer] [facility] C3 Member Subscriber Plan / Payer (Ef fective for All Dates) Name:Hong Gaona Relation to Subscriber:Self Name:Hong Gaona Payer ID:Not on file Group ID:Not on file Type:Medicaid Address: [place] [id number]
== END 2025-07-17 18:17 | disposition home or self-care (01) ==
LOC: HO.MRI 18:16
PROVIDERS: Visit Provider Physician Assistant
DX: S82.142A Displaced bicondylar fracture of left tibia, initial encounter for closed fracture (principal)
CPT/HCPCS: 73721

== ENCOUNTER → 2025-07-17 18:38 | Outpatient (BNV) | payer MEDICAID, SELFPAY | PROVIDERS: Visit Provider Student in an Organized Health Care Education/Training Program | DX: S82.142G Displaced bicondylar fracture of left tibia, subsequent encounter for closed fracture with delayed healing (principal) | CPT/HCPCS: 73721 ==